=== PATIENT | male | born 1980 | race Caucasian/White ===

== ENCOUNTER 2018-05-07 12:19 | Emergency (ER) | payer MEDICAID ==
[2018-05-07] MEDS: LIDOCAINE 1% (MPF) 5 ML VIAL INJ (14:05)
[2018-05-07] MEDS: IBUPROFEN 600 MG TAB PO (14:05)
[2018-05-07] MEDS: DIPHTH/TET/ACEL PERTUSS (ADULT) 0.5 ML VIAL IM* (14:05)
[2018-05-07] MEDS: LIDOCAINE 1% (MDV) 10 ML INJ INJ (14:05)
== END 2018-05-07 15:53 | disposition home or self-care (01) ==
LOC: FTE 15:53
DX: S61.121A Laceration with foreign body of right thumb with damage to nail, initial encounter (principal); W31.2XXA Contact with powered woodworking and forming machines, initial encounter; Y92.9 Unspecified place or not applicable; Z23 Encounter for immunization
CPT/HCPCS: 12031; 73130-RT; 90471; 90715; 99283-25